=== PATIENT | female | born 1940 | race Caucasian/White ===

== ENCOUNTER 2016-10-22 12:55 | Emergency (ER) | payer MEDICARE, MEDICAID | END 2016-10-22 13:49 | disposition home or self-care (01) | LOC: ED 12:55 | DX: H57.8 Other specified disorders of eye and adnexa (principal); E78.5 Hyperlipidemia, unspecified; E78.00 Pure hypercholesterolemia, unspecified; I10 Essential (primary) hypertension; G89.29 Other chronic pain; M79.606 Pain in leg, unspecified; Z79.899 Other long term (current) drug therapy; Z88.1 Allergy status to other antibiotic agents; Z88.5 Allergy status to narcotic agent; Z88.0 Allergy status to penicillin ==